=== PATIENT | male | born 1960 | race Caucasian/White ===

== ENCOUNTER 2018-03-01 15:01 | Emergency (ER) | payer OTHER, SELFPAY ==
[2018-03-01 16:07] LABS: Urine Blood TRACE (NEG); Urine Glucose NEGATIVE (NEG); Urine Protein NEGATIVE (NEG); Urine Specific Gravity 1.025 (1.005-1.030)
--- NOTE | 2018-03-01 17:17 | RAD REPORT ---
EXAM DESCRIPTION: RAD - Ribs Left - 03/01/2018 5:05 pm CLINICAL HISTORY: Fall, left-sided rib pain COMPARISON: None. FINDINGS: No displaced rib fractures are present. Nondisplaced lateral left tenth and eleventh ribs appear fractured on 2 of the 4 images. No aggressive rib lesion. No underlying pneumothorax, effusion , infiltrate or pulmonary contusion. IMPRESSION: Probable nondisplaced fractures of the left tenth and eleventh ribs.
--- NOTE | 2018-03-01 17:18 | RAD REPORT ---
EXAM DESCRIPTION: RAD - Chest Single View - 03/01/2018 5:10 pm CLINICAL HISTORY: Fall, left-sided chest pain, left-sided trauma COMPARISON: Rib series same date, no remote imaging TECHNIQUE: AP portable chest image was obtained 1650 hours . FINDINGS: Lungs are clear. Heart and vasculature are normal. No measurable pleural effusion and no p neumothorax. Ribs are detailed on separate report. No acute shoulder finding. No acute aortic finding s suspected. IMPRESSION: No acute cardiopulmonary process.
--- NOTE | 2018-03-01 17:52 | EDPHYS ---
Physician Documentation [facility] Name: Álvaro Givens Age: 57 yrs Sex: Male : 1960 Arrival Date: 03/01/2018 Time: 15:03 Bed 17 Private MD: ED Physician Miquel Fernandez HPI: 03/01 18:45 This 57 yrs old Male presents to ER via Ambulatory with complaints of Fall jr8 Injury, Rib Pain. 18:45 Details of fall: The patient fell from a height, off furniture. Onset: The jr8 symptoms/episode began/occurred acutely, today. Associated injuries: The patient sustained injury to the chest. Severity of symptoms: At their worst the symptoms were moderate, in the emergency department the symptoms are unchanged. The patient has not experienced similar symptoms in the past. The patient has not recently seen a physician. was on a chair and fell landing on left flank region. Fell onto arm of chair . Historical: - Allergies: 15:21 No Known Allergies; aj - Home Meds: 15:21 None [Active]; aj - PMHx: 15:21 None; aj - PSHx: 15:21 None; aj - Immunization history: Last tetanus immunization: unknown. - Social history:: Smoking status: Patient/guardian denies using tobacco. - Ebola Screening: : Patient negative for fever greater than or equal to 101.5 degrees Fahrenheit, and additional compatible Ebola Virus Disease symptoms Patient denies exposure to infectious person Patient denies travel to an Ebola-affected area in the 21 days before illness onset No symptoms or risks identified at this time. ROS: 18:45 Constitutional: Negative for fever, chills, and weight loss. jr8 18:45 Cardiovascular: Positive for chest pain, with movement, of the left posterior chest wall. 18:45 Back: Positive for flank pain, on the left. 18:45 All other systems are negative. Exam: 18:45 Head/Face: Normocephalic, atraumatic. Eyes: Pupils equal round and reactive to light, jr8 extra-ocular motions intact. Lids and lashes normal. Conjunctiva and sclera are non-icteric and not injected. Cornea within normal limits. Periorbital areas with no swelling, redness, or edema. ENT: Nares patent. No nasal discharge, no septal abnormalities noted. Tympanic membranes are normal and external auditory canals are clear. Oropharynx with no redness, swelling, or masses, exudates, or evidence of obstruction, uvula midline. Mucous membranes moist. Neck: Trachea midline, no thyromegaly or masses palpated, and no cervical lymphadenopathy. Supple, full range of motion without nuchal rigidity, or vertebral point tenderness. No Meningismus. Cardiovascular: Regular rate and rhythm with a normal S1 and S2. No gallops, murmurs, or rubs. Normal PMI, no JVD. No pulse deficits. Respiratory: Lungs have equal breath sounds bilaterally, clear to auscultation and percussion. No rales, rhonchi or wheezes noted. No increased work of breathing, no retractions or nasal flaring. Abdomen/GI: Soft, non-tender, with normal bowel sounds. No distension or tympany. No guarding or rebound. No evidence of tenderness throughout. Skin: Warm, dry with normal turgor. Normal color with no rashes, no lesions, and no evidence of cellulitis. MS/ Extremity: Pulses equal, no cyanosis. Neurovascular intact. Full, normal range of motion. Neuro: Awake and alert, GCS 15, oriented to person, place, time, and situation. Cranial nerves II-XII grossly intact. Motor strength 5/5 in all extremities. Sensory grossly intact. Cerebellar exam normal. Normal gait. 18:45 Chest/axilla: Inspection: normal, Palpation: crepitus, that is mild, of the posterior left lower rib, tenderness, that is moderate, of the posterior left lower ribs. 18:45 Back: CVA tenderness, is absent, vertebral tenderness, is not appreciated, small bruising noted to left lower flank. Vital Signs: 15:18 BP 143 / 82; Pulse 59; Resp 20; Temp 97.2; Pulse Ox 100% on R/A; Weight 77.11 kg; aj Height 5 ft. 9 in. (175.26 cm); 16:00 BP 135 / 78; Pulse 61; Resp 18; Pulse Ox 99% on R/A; Pain 3/10; em 17:00 BP 146 / 76; Pulse 68; Resp 16; Pulse Ox 100% on R/A; em 15:18 Body Mass Index 25.10 (77.11 kg, 175.26 cm) Pelsor Coma Score: 15:18 Eye Response: spontaneous(4). Verbal Response: oriented(5). Motor Response: obeys aj commands(6). Total: 15. Trauma Score (Adult): 15:18 Eye Response: spontaneous(1); Verbal Response: oriented(1); Motor Response: obeys aj commands(2); Systolic BP: > 89 mm Hg(4); Respiratory Rate: 10 to 29 per min(4); Yessenia Score: 15; Trauma Score: 12 MDM: 15:34 Patient medically screened. jr8 17:50 Data reviewed: vital signs, nurses notes, radiologic studies, plain films, and as a jr8 result, I will discharge patient. Data interpreted: Pulse oximetry: on room air is 100 %. Interpretation: normal. Counseling: I had a detailed discussion with the patient and/or guardian regarding: the historical points, exam findings, and any diagnostic results supporting the discharge/admit diagnosis, the need for outpatient follow up, a family practitioner, to return to the emergency department if symptoms worsen or persist or if there are any questions or concerns that arise at home. 03/01 15:58 Order name: Urine Dipstick--Ancillary (enter results) bd 03/01 16:10 Order name: XRAY Chest (1 view); Complete Time: 17:47 jr8 03/01 16:10 Order name: XRAY Ribs LEFT; Complete Time: 17:47 jr8 03/01 15:46 Order name: Urine Dipstick-Ancillary (obtain specimen); Complete Time: 15:53 jr8 Administered Medications: No medications were administered Disposition: 03/02 06:41 Co-signature as Attending Physician, Miquel Fernandez MD I agree with the assessment and sujata plan of care. Disposition: 03/01/18 17:51 Discharged to Home. Impression: Multiple fractures of ribs, left side. - Condition is Stable. - Discharge Instructions: Rib Fracture. - Medication Reconciliation Form, Thank You Letter, Antibiotic Education, Prescription Opioid Use form. - Follow up: Private Physician; When: 2 - 3 days; Reason: Recheck today's complaints, Continuance of care, Re-evaluation by your physician. - Problem is new. - Symptoms have improved. - Notes: Ibuprofen 800 mg as needed up to 3 times a day Signatures: Dispatcher [employer] EDSusie Sneed RN RN aj Anderson, Corey, MD MD cha Munoz Silvestre, TRADEMARK PARALEGAL TRADEMARK PARALEGAL em Dain Steel PA PA jr8 Corrections: (The following items were deleted from the chart) 03/01 16:15 15:56 Chest Abdomen Pelvis W Con+CT.RAD.BRZ ordered. EDNC EDMS 16:19 15:56 IV Saline Lock ordered. jr8 em 16:55 15:56 BASIC METABOLIC PANEL+C.LAB.BRZ ordered. EDMS EDMS 16:56 15:56 CBC+H.LAB.BRZ ordered. EDNC EDMS 18:06 17:51 03/01/2018 17:51 Discharged to Home. Impression: Multiple fractures of ribs, left em side. Condition is Stable. Forms are Medication Reconciliation Form, Thank You Letter, Antibiotic Education, Prescription Opioid Use. Follow up: Private Physician; When: 2 - 3 days; Reason: Recheck today's complaints, Continuance of care, Re-evaluation by your physician. Problem is new. Symptoms have improved. jr8
--- NOTE | 2018-03-01 17:52 | ER ---
Nurse's Notes [facility] Name: Álvaro Givens Age: 57 yrs Sex: Male : 1960 Arrival Date: 03/01/2018 Time: 15:03 Bed 17 Private MD: Diagnosis: Multiple fractures of ribs, left side Presentation: 03/01 15:18 Presenting complaint: Patient states: Reports falling while standing on top of chair 45 aj min [employer], hitting left flank on arm of wooden chair. Care prior to arrival: None. Mechanism of Injury: Fall out of chair approximately 3 feet. Trauma event details: Injury occurred in the [facility], Injury occurred: at home. Injury occurred: March 01, 2018 Injury occurred at: 14:30. 15:18 Acuity: JAYME 3 aj 15:18 Method Of Arrival: Ambulatory aj 15:40 Onset of symptoms was March 01, 2018 at 14:30. Risk Assessment: Do you want to hurt em yourself or someone else? Patient reports no desire to harm self or others. Initial Sepsis Screen: Does the patient meet any 2 criteria? No. Patient's initial sepsis screen is negative. Does the patient have a suspected source of infection? No. Patient's initial sepsis screen is negative. 15:40 Transition of care: patient was not received from another setting of care. em Trauma Activation: Not Applicable Physician: ED Physician; Name: ; Notified At: ; Arrived At: Physician: General Surgeon; Name: ; Notified At: ; Arrived At: Physician: Radiology; Name: ; Notified At: ; Arrived At: Physician: Respiratory; Name: ; Notified At: ; Arrived At: Physician: Lab; Name: ; Notified At: ; Arrived At: Historical: - Allergies: 15:21 No Known Allergies; aj - Home Meds: 15:21 None [Active]; aj - PMHx: 15:21 None; aj - PSHx: 15:21 None; aj - Immunization history: Last tetanus immunization: unknown. - Social history:: Smoking status: Patient/guardian denies using tobacco. - Ebola Screening: : Patient negative for fever greater than or equal to 101.5 degrees Fahrenheit, and additional compatible Ebola Virus Disease symptoms Patient denies exposure to infectious person Patient denies travel to an Ebola-affected area in the 21 days before illness onset No symptoms or risks identified at this time. Screenin:40 Abuse screen: Denies threats or abuse. Nutritional screening: No deficits noted. em Tuberculosis screening: No symptoms or risk factors identified. Fall Risk None identified. Primary Survey: 15:18 A: Airway: patent. Breathing/Chest: Respiratory pattern: regular, Respiratory effort: aj spontaneous, unlabored, Breath sounds: clear, bilaterally. Chest inspection: symmetrical rise and fall of the chest. Circulation: Skin color: pink, Skin temperature: warm, dry. Disability Alert. 16:00 Reassessment Airway Airway Patent Breathing/Chest Respiratory pattern Regular em Respiratory effort Spontaneous Breath sounds Clear Chest inspection Symmetrical Circulation Color [place] Disability Alert. Assessment: 15:18 General: Appears in no apparent distress. uncomfortable, Behavior is calm, cooperative, aj appropriate for age. Pain: Complains of pain in left eighth rib, left ninth rib and left tenth rib. Neuro: Level of Consciousness is awake, alert, obeys commands, Oriented to person, place, time, situation, Appropriate for age. Respiratory: Airway is patent Respiratory effort is even, unlabored, Respiratory pattern is regular, symmetrical. Derm: Skin is intact, is healthy with good turgor, Skin is pink, warm \T\ dry. normal. 15:40 Reassessment: Patient appears in no apparent distress at this time. Patient and/or em family updated on plan of care and expected duration. Pain level reassessed. Patient is alert, oriented x 3, equal unlabored respirations, skin warm/dry/pink. 16:10 Reassessment: Patient appears in no apparent distress at this time. Patient and/or em family updated on plan of care and expected duration. Pain level reassessed. Patient is alert, oriented x 3, equal unlabored respirations, skin warm/dry/pink. pt currently refused CT and IV, provider at bedside discussing benefits of CT, pt verbalizes understanding, provider will cancel CT and order X-rays. 17:10 Reassessment: Patient appears in no apparent distress at this time. Patient and/or em family updated on plan of care and expected duration. Pain level reassessed. Patient is alert, oriented x 3, equal unlabored respirations, skin warm/dry/pink. Vital Signs: 15:18 BP 143 / 82; Pulse 59; Resp 20; Temp 97.2; Pulse Ox 100% on R/A; Weight 77.11 kg; aj Height 5 ft. 9 in. (175.26 cm); 16:00 BP 135 / 78; Pulse 61; Resp 18; Pulse Ox 99% on R/A; Pain 3/10; em 17:00 BP 146 / 76; Pulse 68; Resp 16; Pulse Ox 100% on R/A; em 15:18 Body Mass Index 25.10 (77.11 kg, 175.26 cm) aj Yessenia Coma Score: 15:18 Eye Response: spontaneous(4). Verbal Response: oriented(5). Motor Response: obeys aj commands(6). Total: 15. Trauma Score (Adult): 15:18 Eye Response: spontaneous(1); Verbal Response: oriented(1); Motor Response: obeys aj commands(2); Systolic BP: > 89 mm Hg(4); Respiratory Rate: 10 to 29 per min(4); Hope Score: 15; Trauma Score: 12 ED Course: 15:03 Patient arrived in ED. as 15:19 Triage completed. aj 15:21 Arm band placed on left wrist. Patient placed in an exam room. aj 15:34 Dain Steel PA is PHCP. jr8 15:34 Miquel Fernandez MD is Attending Physician. jr8 15:40 Patient has correct armband on for positive identification. Bed in low position. Call em light in reach. Adult w/ patient. Pulse ox on. NIBP on. 15:40 Patient maintains SpO2 saturation greater than 95% on room air. em 15:40 Thermoregulation: warm blanket given to patient. em 16:05 Silvestre Ny LVN is Primary Nurse. em 16:59 XRAY Chest (1 view) In Process Unspecified. EDMS 17:00 XRAY Ribs LEFT In Process Unspecified. EDMS 18:03 No provider procedures requiring assistance completed. Patient did not have IV access em during this emergency room visit. Administered Medications: No medications were administered Output: 16:00 Urine: 50ml; Total: 50ml. em Outcome: 17:51 Discharge ordered by . jr8 18:03 Discharged to home ambulatory. em 18:03 Condition: good 18:03 Discharge instructions given to patient, Instructed on discharge instructions, follow up and referral plans. Demonstrated understanding of instructions, follow-up care. 18:04 Patient's length of stay in the Emergency Department was greater than 2 hours. em 18:06 Patient left the ED. em Signatures: Dispatcher [employer] Susie Mario RN RN aj Munoz, Edgar, ADRIANA ESCOTON Odalis Giordano Josh, PA PA jr8
== END 2018-03-01 18:06 | disposition home or self-care (01) ==
LOC: ER 15:01
DX: S22.42XA Multiple fractures of ribs, left side, initial encounter for closed fracture (principal); W01.190A Fall on same level from slipping, tripping and stumbling with subsequent striking against furniture, initial encounter; Y93.89 Activity, other specified; Y92.9 Unspecified place or not applicable
CPT/HCPCS: 71045; 81003; 99284